=== PATIENT | male | born 1970 | race Caucasian/White ===

== ENCOUNTER 2021-12-29 12:11 | Emergency (ER) | payer BC, MEDICAID, SELFPAY ==
[2021-12-29 12:21] VITALS: BP 163/100; PULSE 83; RESP 18; TEMP 37; O2SAT 97
--- NOTE | 2021-12-29 12:38 | W.ED.BACK ---
HPI - Back Pain/Injury General: Chief Complaint: Back Pain/Injury Stated Complaint: Back Pain Time Seen by Provider: 12/29/21 12:31 Source: patient Mode of arrival: ambulatory Limitations: no limitations History of Present Illness: Patient is a 51-year-old male who presents to ED today for evaluation of left-sided back pain. Patient tells me few days ago while at work he was riding in a truck and bouncing up and down and felt like he felt something in the left side of his back pulled/strained. He states he has had ribs out of place on the right side that have felt similar. He states that evening and into the following day the pain seemed to wax and wane and states he even had long periods where he was pain-free however felt like with certain movements especially rotating to the left and leaning over would would cause discomfort. 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 He was treating with heat and anti-inflammatories with moderate relief. Patient is not having any radicular pains. No urinary symptoms. He does not complain of chest pain, shortness of breath, abdominal pains. MD elicited complaint: back pain Onset (ago): day(s) Timing: intermittent Similar Symptoms Previously: Yes Location: left upper back Radiation: none Exacerbating factors: movement Associated symptoms: Deny abdominal pain, chills, difficulty walking, dysuria, fatigue, fever(s) or hematuria Treatments prior to arrival: NSAIDS Work related injury: No Review of Systems Const: Denies: fever(s), chills, body aches, fatigue or malaise Card: Denies: chest pain Resp: Denies: dyspnea GI: Denies: abdominal pain : Denies: flank pain, dysuria, hematuria or genital pain Musc: Reports: back pain; Denies: neck pain, extremity pain, extremity swelling, joint pain or joint swelling Skin/Breast: Denies: rash Neuro: Denies: headache(s), numbness in extremities, weakness in extremities, sensory changes or difficulty walking Physical Exam Const: COMMON NORMALS: no acute distress, patient oriented x3, no limitations and alert GENERAL APPEARANCE: cooperative NUTRITIONAL APPEARANCE: obese ORIENTATION/CONSCIOUSNESS: Yes awake, Yes oriented to person, Yes oriented to place and Yes oriented to time Neck/C-Spine: COMMON NORMALS: full ROM, no JVD and No carotid bruits Chest: COMMONS NORMALS: normal inspection of the chest and normal palpation of entire chest wall Resp: COMMON NORMALS: normal respiratory effort and clear to auscultation bilaterally AUSCULTATION: clear to auscultation bilaterally Cardio: COMMON NORMALS: no JVD, regular rate and regular rhythm RATE: regular rate RHYTHM: regular rhythm GI: COMMON NORMALS: Normal to inspection, nondistended, normoactive bowel sounds present, Soft to palpation, non-tender, No hepatosplenomegaly present and no masses PALPATION: Yes Soft to palpation and Yes No hepatosplenomegaly present : COMMON NORMALS: Yes no CVA tenderness BLADDER/KIDNEY EXAM: Yes no CVA tenderness Back/Pelvis: COMMON NORMALS: no CVA tenderness, thoracic and lumbar spine normal to inspection, no thoracic nor lumbar tenderness, thoraco-lumbar ROM normal and straight leg raise negative bilaterally THORACIC SPINE/UPPER BACK: Yes pain with ROM, No thoracic spinal tenderness, Yes paraspinal muscle tenderness and No paraspinal muscle spasm PELVIS: Yes buttocks normal SACROILIAC JOINTS: Yes SI joints normal BACK IMAGE (MALE): 1. TTP Extremity: COMMON NORMALS: normal to inspection, full ROM, capillary refill normal, no joint enlargement, no clubbing, cyanosis or edema, no calf tenderness and no pedal edema GENERAL: Yes normal exam except as noted Neuro: COMMON NORMALS: patient oriented x3, moves all extremities, no focal motor deficits and no sensory deficits noted SENSORIUM/ORIENTATION: Yes alert, Yes oriented to person, Yes oriented to place and Yes oriented to time Skin: COMMON NORMALS: no rashes or lesions noted GENERAL SKIN EXAM: no rashes or lesions noted Course Vital Signs: Vital signs: Vital Signs Temperature 98.6 F 12/29/21 12:21 Pulse Rate 66 12/29/21 14:15 Respiratory Rate 18 12/29/21 12:21 Blood Pressure 154/96 12/29/21 14:15 Pulse Oximetry 94 12/29/21 14:15 MDM - Back Pain/Injury Medical Decision Making Patient's history and physical exam is consistent with musculoskeletal strain. Will treat with anti-inflammatories, steroids, muscle relaxers. He does state he has a chiropractic appointment on Wednesday to see if this can help alleviate some of his discomfort. Recommend follow-up with primary care in 1 to 2 weeks if symptoms do not seem to be improving. Strict return to ED precautions verbally given. Discharge Plan Discharge Patient Disposition: Home Clinical Impression: Strain of thoracic back region Condition: Stable Prescriptions: New methocarbamol 500 mg tablet 1,000 mg PO Q8H Qty: 30 0RF Medrol (Anival) 4 mg tablets,dose pack See Rx Instructions .ROUTE .COMPLEX Qty: 21 0RF Rx Instructions: orally per package directions Discharge Orders: Discharge ED (Routine); Ordered 12/29/21 Ordered By: Laurel Lancaster Activity Restrictions/Additional Instructions: You may continue to take 600 to 800 mg of ibuprofen along with the prescribed medications for treatment of your back pain. As we discussed you may also try ice/heat. Please follow-up with primary care in 1 to 2 weeks if back pain does not seem to be improving. Coding Level of Care Code ED Paper [facility] [employer] for Sam[facility] Fwlaura Exam Comprehensive
[2021-12-29] MEDS: dexamethasone 10 mg/mL INJ 8 MG IM (13:07)
[2021-12-29] MEDS: ketorolac 60 mg/2 mL INJ IM (13:08)
[2021-12-29 14:15] VITALS: BP 154/96; PULSE 66; O2SAT 94
== END 2021-12-29 14:10 | disposition home or self-care (01) ==
PROVIDERS: Emergency Provider Physician Assistant
DX: S29.012A Strain of muscle and tendon of back wall of thorax, initial encounter (principal); X58.XXXA Exposure to other specified factors, initial encounter
CPT/HCPCS: 96372; 99284; J1100; J1885